=== PATIENT | female | born 1945 | race Caucasian/White ===

== ENCOUNTER 2017-10-15 12:54 | Emergency (ER) | payer MEDICARE, MEDICAID ==
[2017-10-15 13:08] VITALS: BP 113/76; PULSE 98; RESP 16; TEMP 97.6; O2SAT 98
--- NOTE | 2017-10-15 13:17 | C.PDOC ---
History Of Present Illness 72 year old female presents to the ED for evaluation of sore throat, irritation , dry cough "from my throat." Patient reports sinus pain. Denies fever, chills, chest pain, SOB. SORE THROAT, IRRITATION, DRY COUGH "FROM MY THROAT'. +SINUS PAIN. NO FEVER. NO CP, SOB EXAM HEENT NOSE CLEAR +FRONTAL SINUS TEND; PHARYNX NEG. LUNGS CTA B/L NO W/R/R REMAINDER NEG Time Seen by Provider: 10/15/17 13:10 Chief Complaint (Nursing): ENT Problem History Per: Patient History/Exam Limitations: no limitations Onset/Duration Of Symptoms: Days Current Symptoms Are (Timing): Still Present Location Of Pain: Throat Associated Symptoms: Sore Throat, Cough. denies: Fever, Chills, Sputum Ear Symptoms: Bilateral: None Additional History Per: Patient Past Medical History Reviewed: Historical Data, Nursing Documentation, Vital Signs Vital Signs: Last Vital Signs Temp 97.6 F 10/15/17 13:03 Pulse 98 H 10/15/17 13:03 Resp 16 10/15/17 13:03 BP 113/76 10/15/17 13:03 Pulse Ox 98 10/15/17 13:18 - Medical History PMH: Diabetes, Hypercholesterolemia, Hypothyroidism Surgical History: No Surg Hx Family History: States: Unknown Family Hx - Social History Hx Tobacco Use: No Hx Alcohol Use: No Hx Substance Use: No - Immunization History Hx Tetanus Toxoid Vaccination: No Hx Influenza Vaccination: No Hx Pneumococcal Vaccination: No Review Of Systems Constitutional: Negative for: Fever, Chills ENT: Positive for: Throat Pain Cardiovascular: Negative for: Chest Pain Respiratory: Positive for: Cough. Negative for: Shortness of Breath, Sputum Physical Exam - Physical Exam Appears: Non-toxic, No Acute Distress Skin: Normal Color, Warm, Dry Head: Atraumatic, Normacephalic, Tenderness (frontal sinus ) Eye(s): bilateral: Normal Inspection Ear(s): Bilateral: Normal Nose: Normal, No Discharge Oral Mucosa: Moist Throat: Normal, No Erythema, No Exudate Neck: Supple Chest: Symmetrical, No Deformity, No Tenderness Cardiovascular: Rhythm Regular, No Murmur Respiratory: Normal Breath Sounds, No Rales, No Rhonchi, No Wheezing Extremity: Normal ROM, Capillary Refill (less than 2 seconds ) Neurological/Psych: Oriented x3, Normal Speech, Normal Cognition Gait: Steady ED Course And Treatment O2 Sat by Pulse Oximetry: 98 (on RA) Pulse Ox Interpretation: Normal Disposition Counseled Patient/Family Regarding: Diagnosis, Need For Followup, Rx Given - Disposition Referrals: YOUR,PMD [Other] Disposition: HOME/ ROUTINE Disposition Time: 13:16 Condition: IMPROVED Prescriptions: Benzonatate [Tessalon Perles] 200 mg PO TID PRN #15 sgl PRN Reason: Cough Dexamethasone [Decadron] 8 mg PO ONCE #2 tab Pseudoephedrine HCl [Sudafed 24 Hour] 240 mg PO DAILY PRN #1 unit PRN Reason: Sinus Symptoms Instructions: Rhinosinusitis (ED) Forms: [employer] (Turkish) - Clinical Impression Clinical Impression: Sinusitis - Scribe Statement The provider has reviewed the documentation as recorded by the Scribe (Larissa Hussein) Provider Attestation: All medical record entries made by the Scribe were at my direction and personally dictated by me. I have reviewed the chart and agree that the record accurately reflects my personal performance of the history, physical exam, medical decision making, and the department course for this patient. I have also personally directed, reviewed, and agree with the discharge instructions and disposition.
== END 2017-10-15 13:44 | disposition home or self-care (01) ==
LOC: C.ER 12:54
DX: J32.9 Chronic sinusitis, unspecified (principal)